=== PATIENT | female | born 1955 | race Caucasian/White ===

== ENCOUNTER 2021-07-23 09:32 | Observation (INO) | payer MEDICARE, OTHER ==
--- NOTE | 2021-07-23 10:03 | CR ---
EXAMINATION: Ankle 2V Lt SEX: Female AGE: 66 years CLINICAL HISTORY: 66-year-old female injured left ankle (fall and pain). Interpretation: Abnormal. FRACTURE/DISLOCATION left ankle. (Air splint artifact) 1. Distal fibular fracture and posterior/lateral malleolar fractures of the distal tibia. 2. Complete tibiotalar dislocation i.e. distal tibia dislocated anteromedially off the dome of the talus. 3. No calcaneal or left mid foot fracture/dislocation.
--- NOTE | 2021-07-23 10:21 | EDM.PDOC ---
ED HPI GENERAL MEDICAL PROBLEM - General Chief Complaint: Lower Extremity Injury/Pain Stated Complaint: IN BY AMBULANCE Time Seen by Provider: 07/23/21 10:15 Source of Information: Reports: Patient History Limitations: Reports: No Limitations - History of Present Illness INITIAL COMMENTS - FREE TEXT/NARRATIVE: 66 y/o F states she was sitting on her walker in her closet trying to get a box off the shelf when she fell off her walker and landed on her L ankle. Pt pushed her life alert and EMS was called. Pt c/o L ankle pain 2/10, sharp, non radiating. The pt is developmentally delayed and difficult to interview. She has not other complaints. Denies loc, nvd, dizziness, cp, abd pn, pelivc pn, other extremity pn, fever, cough, chills. Onset: Sudden Duration: Hour(s): Location: Reports: Lower Extremity, Left Severity: Mild Improves with: Reports: None Worsens with: Reports: None Left Ankle Pain Score (Numeric/FACES): 3 - Related Data Allergies Allergy/AdvReac Type Severity Reaction Status Date / Time No Known Allergies Allergy Verified 07/23/21 09:41 Home Meds: Home Meds Interferon Beta-1a/Albumin [Rebif Rebidose 44 Mcg/0.5 ml] 44 mcg IM .3XWEEKLY 07/01/14 [History] Aspirin [Halfprin] 81 mg PO DAILY #90 tab.ec 05/19/19 [Rx] Calcium Carbonate/Vitamin D3 [Calcium Carbonate/Vitamin D 1250 MG - 5 MCG] 1 tab PO BID #30 tablet 05/19/19 [Rx] Coconut Oil [Coconut Oil] 1 dose PO DAILY #30 05/19/19 [Rx] Cranberry Conc/C/Bacill Coag [Cranberry Tablet] 1 each PO DAILY #30 05/19/19 [Rx] Melatonin 6 mg PO BEDTIME #90 tablet 05/19/19 [Rx] Nitroglycerin [Nitrostat] 0.4 mg SL ASDIRECTED PRN #90 tab.sl 05/19/19 [Rx] Ondansetron [Zofran] 4 mg PO Q8H PRN #30 tab 05/19/19 [Rx] Rosuvastatin [Crestor] 40 mg PO DAILY #30 05/19/19 [Rx] Sertraline [Zoloft] 50 mg PO DAILY 30 Days #30 tablet 05/19/19 [Rx] hydroCHLOROthiazide [Hydrochlorothiazide] 25 mg PO DAILY #30 tablet 05/19/19 [Rx] Scopolamine [Transderm-Scop] 1.5 mg TRDERM Q72H PRN #7 patch 05/21/19 [Rx] Alendronate Sodium [Fosamax] 70 mg PO .EVERY THRUS 07/23/21 [History] Docusate Sodium 100 mg PO BID 07/23/21 [History] Potassium Gluconate [Potassium] 99 mg PO DAILY 07/23/21 [History] lisinopriL [Prinivil] 10 mg PO DAILY 07/23/21 [History] Past Medical History HEENT History: Reports: Hard of Hearing, Impaired Vision Other HEENT History: poor hearing in right ear Cardiovascular History: Reports: CAD, High Cholesterol, Hypertension, AR, Other (See Below), Pacemaker Other Cardiovascular History: debrillator Respiratory History: Reports: None Gastrointestinal History: Reports: None Genitourinary History: Reports: Chronic Renal Insuffiency, UTI, Recurrent Other Genitourinary History: frequency [employer] SCI[employer]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 [employer]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 Musculoskeletal History: Reports: None Other Musculoskeletal History: Patient has MS, diagnosed about 5-7 years ago Neurological History: Reports: CVA, MS Other Neuro History: lacunar infarction, bells palsy Psychiatric History: Reports: None Endocrine/Metabolic History: Reports: Obesity/BMI 30+ Hematologic History: Reports: Anemia, None Immunologic History: Reports: None Oncologic (Cancer) History: Reports: None Dermatologic History: Reports: None - Infectious Disease History Infectious Disease History: Reports: Chicken Pox, Measles, Mumps - Past Surgical History Head Surgeries/Procedures: Reports: None HEENT Surgical History: Reports: Adenoidectomy, Tonsillectomy Cardiovascular Surgical History: Reports: None Other Cardiovascular Surgeries/Procedures: cardiac stent placement, cardiac catherization, cardiac pacemaker placement with AICD Respiratory Surgical History: Reports: None GI Surgical History: Reports: Appendectomy Neurological Surgical History: Reports: None Musculoskeletal Surgical History: Reports: None Social & Family History - Family History Family Medical History: No Pertinent Family History Cardiac: Reports: Hypertension Musculoskeletal: Reports: Arthritis Endocrine/Metabolic: Reports: Other (See Below) Other Endocrine/Metabolic Family History: mother: thyroid disease Oncologic: Reports: Other (See Below) Other Oncologic Family History: father and siser had cancer - Tobacco Use Tobacco Use Status *Q: Never Tobacco User - Caffeine Use Caffeine Use: Reports: None Other Caffeine Use: 1 can - Recreational Drug Use Recreational Drug Use: No - Living Situation & Occupation Living situation: Reports: Alone, Assisted Living, with Family, Single Occupation: Disabled Review of Systems - Review of Systems Review Of Systems: Comprehensive ROS is negative, except as noted in HPI. ED EXAM, GENERAL - Physical Exam Exam: See Below Exam Limited By: No Limitations General Appearance: Alert, No Apparent Distress Throat/Mouth: Normal Inspection, Normal Lips, Normal Teeth, Normal Gums, Normal Oropharynx, Normal Voice, No Airway Compromise Head: Atraumatic, Normocephalic Neck: Normal Inspection, Supple, Non-Tender, Full Range of Motion Respiratory/Chest: No Respiratory Distress, Lungs Clear, Normal Breath Sounds, No Accessory Muscle Use, Chest Non-Tender Cardiovascular: Normal Peripheral Pulses, No Edema, No Gallop, No JVD, No Murmur, No Rub Peripheral Pulses: 2+: Posterior Tibial (L), Posterior Tibial (R), Dorsalis Pedis (L), Dorsalis Pedis (R) GI/Abdominal: Soft, Non-Tender (Female) Exam: Deferred Rectal (Female) Exam: Deferred Back Exam: Normal Inspection, Full Range of Motion Extremities: Other (L ankle deformity, foot deviated laterally.) Skin Exam: Warm, Dry, Intact ED TRAUMA EXTREMITY PROCEDURES - Joint Reduction Left Ankle Sedation: Conscious Sedation Pre-Procedure NV Status: Normal Post-Procedure NV Status: Normal Technique: Traction/Counter Traction Number of Attempts: 1 Post-Reduction Imaging: Completely Reduced Joint Reduction Complications: No Progress/Comments: Pt tolerated well, splinted with orthoglass, no complications, Course - Vital Signs Last Recorded V/S: Last Vital Signs Temp 97.3 F 07/23/21 09:46 Pulse 70 07/23/21 09:46 Resp 18 07/23/21 09:46 BP 108/79 07/23/21 09:46 Pulse Ox 93 L 07/23/21 09:46 - Orders/Labs/Meds Orders: Active Orders 24 hr Category Date Time Status Admission Diagnosis [ADT] Urgent ADT 07/23/21 13:42 Ordered Admission Status [Patient Status] [ADT] Routine ADT 07/23/21 13:42 Ordered Sodium Chloride 0.9% [Normal Saline] 1,000 ml Med 07/23/21 10:43 Active IV CONTINUOUS Medication Orders Sodium Chloride (Normal Saline) 1,000 mls @ 125 mls/hr IV CONTINUOUS ONE Stop: 07/23/21 18:42 Last Admin: 07/23/21 11:33 Dose: 125 mls/hr Documented by: JANE Labs: Laboratory Tests 07/23/21 Range/Units 12:06 SARS-CoV-2 RNA (EMI) Negative (NEGATIVE) Meds: Medications Generic Name Dose Route Start Last Admin Trade Name Ericka PRN Reason Stop Dose Admin Sodium Chloride 1,000 mls @ 125 mls/hr 07/23/21 10:43 07/23/21 11:33 Normal Saline IV 07/23/21 18:42 125 mls/hr CONTINUOUS ONE Administration - Re-Assessments/Exams Free Text/Narrative Re-Assessment/Exam: 07/23/21 11:40 Spoke with Kim at [facility] one call and she will contact an orthopedic surgeon to consult with me on this fracture dislocation. 07/23/21 13:49 Discussed the pt with Dr. Fry he will admit the pt until she can be placed in a group home. She is scheduled to be evaluated in [place] on Mon by [facility] orthopedics. Departure - Departure Time of Disposition: 13:36 (Dr. Fry) Disposition: Admitted As Inpatient 64 Condition: Fair Clinical Impression: Ankle fracture, left - Discharge Information *PRESCRIPTION DRUG MONITORING PROGRAM REVIEWED*: Not Applicable *COPY OF PRESCRIPTION DRUG MONITORING REPORT IN PATIENT HORACIO: Not Applicable Forms: ED Department Discharge Sepsis Event Note (ED) - Focused Exam Vital Signs: Vital Signs Temp Pulse Resp BP Pulse Ox 07/23/21 09:46 97.3 F 70 18 108/79 93 L - My Orders Last 24 Hours: My Active Orders 07/23/21 10:43 Sodium Chloride 0.9% [Normal Saline] 1,000 ml IV CONTINUOUS 07/23/21 13:42 Admission Diagnosis [ADT] Urgent Admission Status [Patient Status] [ADT] Routine - Assessment/Plan Last 24 Hours: My Active Orders 07/23/21 10:43 Sodium Chloride 0.9% [Normal Saline] 1,000 ml IV CONTINUOUS 07/23/21 13:42 Admission Diagnosis [ADT] Urgent Admission Status [Patient Status] [ADT] Routine
[2021-07-23] MEDS ORDERED: Sodium Chloride 0.9% 1,000 ML IV ONE (10:43)
--- NOTE | 2021-07-23 11:32 | CR ---
EXAMINATION: Ankle 2V Lt SEX: Female AGE: 66 years CLINICAL HISTORY: 66-year-old female "fracture/dislocation left ankle" (post reduction). INTERPRETATION: Satisfactory reduction spiral distal fibular and possibly posterior malleolar fracture distal tibia i.e. now satisfactory apposition and anatomic alignment. Satisfactory symmetric re-orientation of the tibiotalar joint. No new postreduction fracture appreciated through the splint/cast density.
[2021-07-23] MEDS ORDERED: Propofol 1,000 MG/100 ML SDV IV ONE (13:14)
--- NOTE | 2021-07-23 13:48 | PCM.HP ---
H&P History of Present Illness - General Date of Service: 07/23/21 Admit Problem/Dx: Traumatic fall Source of Information: Patient, Provider, RN Notes Reviewed History Limitations: Reports: Physical Impairment - History of Present Illness Initial Comments - Free Text/Narative: This is a 66-year-old elderly white female with past medical history of impaired vision and hearing, hypertension, hyperlipidemia, history of FL, coronary disease, status post defibrillator placement, history of renal insufficiency, recurrent UTI, urinary frequency, MS, history of CVA, history of Tristan's palsy, vitamin D deficiency, osteoporosis, insomnia, anxiety, and obesity who was brought in by EMS on a stretcher after sustaining a traumatic fall while attempting to get something out of her closet and ended up injuring her left ankle. She currently has deformity but neuro vascularly intact. She denies any preceding symptoms. No loss of consciousness. She reports no strokelike or seizure-like activities. Her initial work-up in the emergency department shows negative for COVID-19 screening test. Her initial ankle x-ray was read as distal fibular fracture and posterior/lateral malleoli fracture of the distal fibula with complete tibiotalar dislocation. In the emergency department, the attending provider was able to reduce the dislocated bones after consulting with Dr. Duran, orthopedic surgeon, in [place]. Unfortunately the patient is unable to go back to the assisted living facility and therefore she comes to us for further observation with plans to discharge on Monday to a local half-way. She has been scheduled to see Dr. Duran for possible surgical intervention next week. The patient and her family were aware of the medical decision making that was formulated while she was in the emergency department. To note, the local half-way is in agreement to take her Monday for placement. Her code status is full. Left Ankle Pain Score (Numeric/FACES): 3 - Related Data Allergies/Adverse Reactions: Allergies Allergy/AdvReac Type Severity Reaction Status Date / Time No Known Allergies Allergy Verified 07/23/21 15:11 Home Medications: Home Meds Interferon Beta-1a/Albumin [Rebif Rebidose 44 Mcg/0.5 ml] 44 mcg IM .3XWEEKLY 07/01/14 [History] Aspirin [Halfprin] 81 mg PO DAILY #90 tab.ec 05/19/19 [Rx] Calcium Carbonate/Vitamin D3 [Calcium Carbonate/Vitamin D 1250 MG - 5 MCG] 1 tab PO BID #30 tablet 05/19/19 [Rx] Coconut Oil [Coconut Oil] 1 dose PO DAILY #30 05/19/19 [Rx] Cranberry Conc/C/Bacill Coag [Cranberry Tablet] 1 each PO DAILY #30 05/19/19 [Rx] Nitroglycerin [Nitrostat] 0.4 mg SL ASDIRECTED PRN #90 tab.sl 05/19/19 [Rx] Ondansetron [Zofran] 4 mg PO Q8H PRN #30 tab 05/19/19 [Rx] Sertraline [Zoloft] 50 mg PO DAILY 30 Days #30 tablet 05/19/19 [Rx] hydroCHLOROthiazide [Hydrochlorothiazide] 25 mg PO DAILY #30 tablet 05/19/19 [Rx] Scopolamine [Transderm-Scop] 1.5 mg TRDERM Q72H PRN #7 patch 05/21/19 [Rx] Acetaminophen [Pain Relief] 500 mg PO Q4H PRN 07/23/21 [History] Alendronate Sodium [Fosamax] 70 mg PO .Monday07/23/21 [History] Bisacodyl [Gentle Laxative] 10 mg RC DAILY PRN 07/23/21 [History] Docusate Sodium 100 mg PO BID 07/23/21 [History] Ibuprofen 200 mg PO Q6H PRN 07/23/21 [History] Melatonin 5 mg PO BEDTIME 07/23/21 [History] Potassium Gluconate [Potassium] 99 mg PO DAILY 07/23/21 [History] Rosuvastatin Calcium 40 mg PO DAILY 07/23/21 [History] lisinopriL [Lisinopril] 10 mg PO DAILY 07/23/21 [History] polyethylene glycoL 3350 [MiraLAX] 17 gm PO DAILY PRN 07/23/21 [History] Past Medical History HEENT History: Reports: Hard of Hearing, Impaired Vision Other HEENT History: poor hearing in right ear Cardiovascular History: Reports: CAD, High Cholesterol, Hypertension, FL, Other (See Below), Pacemaker Other Cardiovascular History: debrillator Respiratory History: Reports: None Gastrointestinal History: Reports: None Genitourinary History: Reports: Chronic Renal Insuffiency, UTI, Recurrent Other Genitourinary History: frequency [employer] 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 Musculoskeletal History: Reports: None Other Musculoskeletal History: Patient has MS, diagnosed about 5-7 years ago Neurological History: Reports: CVA, MS Other Neuro History: lacunar infarction, bells palsy Psychiatric History: Reports: None Endocrine/Metabolic History: Reports: Obesity/BMI 30+ Hematologic History: Reports: Anemia, None Immunologic History: Reports: None Oncologic (Cancer) History: Reports: None Dermatologic History: Reports: None - Infectious Disease History Infectious Disease History: Reports: Chicken Pox, Measles, Mumps - Past Surgical History Head Surgeries/Procedures: Reports: None HEENT Surgical History: Reports: Adenoidectomy, Tonsillectomy Cardiovascular Surgical History: Reports: None Other Cardiovascular Surgeries/Procedures: cardiac stent placement, cardiac catherization, cardiac pacemaker placement with AICD Respiratory Surgical History: Reports: None GI Surgical History: Reports: Appendectomy Neurological Surgical History: Reports: None Musculoskeletal Surgical History: Reports: None Social & Family History - Family History Family Medical History: No Pertinent Family History Cardiac: Reports: Hypertension Musculoskeletal: Reports: Arthritis Endocrine/Metabolic: Reports: Other (See Below) Other Endocrine/Metabolic Family History: mother: thyroid disease Oncologic: Reports: Other (See Below) Other Oncologic Family History: father and siser had cancer - Tobacco Use Tobacco Use Status *Q: Never Tobacco User - Caffeine Use Caffeine Use: Reports: None Other Caffeine Use: 1 can - Recreational Drug Use Recreational Drug Use: No - Living Situation & Occupation Living situation: Reports: Alone, Assisted Living, with Family, Single Occupation: Disabled H&P Review of Systems - Review of Systems: Review Of Systems: See Below General: Reports: Weakness. Denies: Fever, Malaise, Fatigue HEENT: Denies: Contact Lenses Pulmonary: Denies: Shortness of Breath, Wheezing, Pleuritic Chest Pain Cardiovascular: Denies: Chest Pain, Lightheadedness Gastrointestinal: Denies: Anorexia, Constipation, Diarrhea, Distension Genitourinary: Reports: Frequency Musculoskeletal: Reports: Neck Pain, Leg Pain. Denies: Back Pain Skin: Denies: Jaundice, Erythema, Wound Psychiatric: Denies: Anxiety, Agitation Neurological: Reports: Difficulty Walking, Weakness, Gait Disturbance. Denies: Dizziness, Numbness, Tingling Hematologic/Lymphatic: Reports: No Symptoms Immunologic: Reports: No Symptoms Exam - Exam Exam: See Below - Vital Signs Vital Signs: Last Vital Signs Temp 36.3 C 07/23/21 09:46 Pulse 70 07/23/21 09:46 Resp 18 07/23/21 09:46 BP 108/79 07/23/21 09:46 Pulse Ox 93 L 07/23/21 09:46 Weight: 95.617 kg - Exam Quality Assessment: No: Supplemental Oxygen General: Alert, Oriented, Cooperative HEENT: Conjunctiva Clear, EACs Clear, EOMI, Hearing Intact, Mucosa Moist & Tiro, Nares Patent, Normal Nasal Septum, Posterior Pharynx Clear, Pupils Equal, Pupils Reactive Neck: Supple, Trachea Midline Lungs: Clear to Auscultation, Normal Respiratory Effort Cardiovascular: Regular Rate, Regular Rhythm, Other (Presence of cardiac device and upper anterior thorax) GI/Abdominal Exam: Normal Bowel Sounds, Soft, Non-Tender, No Organomegaly, Other (Obese) (Female) Exam: Deferred Rectal (Female) Exam: Deferred Back Exam: Normal Inspection, Decreased Range of Motion Extremities: Normal Inspection, Non-Tender, Normal Capillary Refill, Limited Range of Motion (Left lower extremity), Other (Left lower extremity: Splinted with Ortho-Glass) Peripheral Pulses: 2+: Dorsalis Pedis (L), Dorsalis Pedis (R) Skin: Warm, Dry, Intact Neuro Extensive - Mental Status: Oriented x3, Memory Intact Neuro Extensive - Motor, Sensory, Reflexes: CN II-XII Intact (Limited due to pain and discomfort but otherwise grossly intact; she is nonweightbearing of the affected limb). No: Normal Gait DTR: 2+: Achilles (L), Achilles (R) Psychiatric: Alert, Normal Affect, Normal Mood - Patient Data Lab Results Last 24 hrs: Laboratory Results - last 24 hr 07/23/21 Range/Units 12:06 SARS-CoV-2 RNA (EMI) Negative (NEGATIVE) Result Diagrams: 07/24/21 05:10 07/24/21 05:10 Problem List Initiated/Reviewed/Updated: Yes Orders Last 24hrs: Active Orders 24 hr Category Date Time Status Sodium Chloride 0.9% [Normal Saline] 1,000 ml Med 07/23/21 10:43 Active IV CONTINUOUS Medication Orders Sodium Chloride (Normal Saline) 1,000 mls @ 125 mls/hr IV CONTINUOUS ONE Stop: 07/23/21 18:42 Last Admin: 07/23/21 11:33 Dose: 125 mls/hr Documented by: JANE Assessment/Plan Comment:: This is a 66-year-old elderly white female with past medical history of impaired vision and hearing, hypertension, hyperlipidemia, history of FL, coronary disease, status post defibrillator placement, history of renal insufficiency, recurrent UTI, urinary frequency, MS, history of CVA, history of Tristan's palsy, vitamin D deficiency, osteoporosis, insomnia, anxiety, and obesity who was brought in by EMS on a stretcher after sustaining a traumatic fall while attempting to get something out of her closet and ended up injuring her left ankle. Assessment: Acute: Traumatic fall/ground-level fall without preceding symptoms Distal fibular fracture and posterior/lateral malleolar fracture of the distal fibula Complete tibiotalar dislocation Status post manual reduction with Ortho teleconsult Osteoporosis Vitamin D deficiency Class II obese Chronic: Impaired vision and hearing, hypertension, hyperlipidemia, history of FL, coronary disease, history of sick sinus syndrome status post pacemaker placement, history of renal insufficiency, recurrent UTI, urinary frequency, MS, history of CVA, history of Tristan's palsy, vitamin D deficiency, osteoporosis, insomnia, anxiety, and obesity Plan: Admit to medical surgical floor Routine a.m. 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 Duran next week (Monday) for orthopedic evaluation CODE STATUS is full
[2021-07-23] MEDS ORDERED: Promethazine 25 MG/ML SDV IM PRN (14:57)
[2021-07-23] MEDS ORDERED: Polyethylene Glycol 3350 Powder 17 GM Packet PO PRN ×2 (14:57→15:49)
[2021-07-23] MEDS ORDERED: HYDROmorphone 0.5 MG/0.5 ML Syringe IVPUSH PRN (14:57)
[2021-07-23] MEDS ORDERED: Acetaminophen 325 MG Tab PO PRN (14:57)
[2021-07-23] MEDS ORDERED: Bisacodyl 5 MG Tab PO PRN (14:57)
[2021-07-23] MEDS ORDERED: Albuterol/Ipratropium 3.0-0.5 MG/3 ML Neb Soln NEB PRN (14:57)
[2021-07-23] MEDS ORDERED: Ondansetron 4 MG/2 ML SDV IVPUSH PRN (14:57)
[2021-07-23] MEDS ORDERED: Nitroglycerin 0.4 MG Tab.SL SL PRN (15:14)
[2021-07-23] MEDS ORDERED: Non-Formulary Medication 1 Each (Alendronate Sodium [Fosamax] 70 MG Tablet) PO SCH (15:15)
[2021-07-23] MEDS ORDERED: Bisacodyl 10 MG Supp RECTAL PRN (15:49)
[2021-07-23] MEDS ORDERED: Acetaminophen 500 MG Tab PO PRN (15:49)
[2021-07-23] MEDS ORDERED: Scopolamine 1.5 MG Transdermal Patch TRDERM PRN (15:49)
[2021-07-23] MEDS ORDERED: Ondansetron 4 MG Tab.DIS PO PRN (15:49)
[2021-07-23] MEDS ORDERED: ALBUMIN IM SCH (16:00)
[2021-07-23] MEDS ORDERED: [UNRECOGNIZED DRUG - OTHER] IM SCH (16:00)
[2021-07-23] MEDS ORDERED: INTERFERON BETA IM SCH (16:00)
[2021-07-23] MEDS: Acetaminophen/HYDROcodone 325-10 MG Tab PO PRN (20:41)
[2021-07-23] MEDS: Heparin Sodium 5,000 Units/ML Vial SUBCUT SCH (23:35)
[2021-07-24] MEDS: Heparin Sodium 5,000 Units/ML Vial SUBCUT SCH ×4 (05:12→22:44)
[2021-07-24] MEDS: Acetaminophen/HYDROcodone 325-10 MG Tab PO PRN ×4 (05:12→20:22)
[2021-07-24 05:23] LABS: ANION GAP 14.4 mEq/L (7-13)
--- NOTE | 2021-07-24 08:49 | PCM.PN ---
- General Info Date of Service: 07/24/21 Admission Dx/Problem (Free Text): Traumatic fall Subjective Update: No overnight or acute issues. Her pain is controlled with a pain scale of 3/10. She has no new complaints. She is afebrile with stable blood pressures. Her CBC is unremarkable. Her chemistry today shows potassium of 3.4 with elevated creatinine level of 1.9, much improved from yesterday of 1.35. Her glucose is also elevated at 145. Functional Status: Reports: Pain Controlled, Tolerating Diet, Urinating. Denies: Ambulating, New Symptoms - Review of Systems General: Denies: Fever, Weakness, Malaise, Chills Pulmonary: Reports: Cough. Denies: Shortness of Breath Cardiovascular: Denies: Chest Pain Gastrointestinal: Denies: Abdominal Pain, Nausea, Vomiting Genitourinary: Denies: Frequency, Urgency Musculoskeletal: Reports: Leg Pain. Denies: Neck Pain, Back Pain Skin: Reports: Pruritis. Denies: Bruising Neurological: Reports: Difficulty Walking, Gait Disturbance. Denies: Confusion Psychiatric: Denies: Depression, Anxiety, Agitation - Patient Data Vitals - Most Recent: Last Vital Signs Temp 36.7 C 07/24/21 08:00 Pulse 77 07/24/21 08:00 Resp 20 07/24/21 08:00 BP 103/74 07/24/21 08:00 Pulse Ox 95 07/24/21 08:00 Weight - Most Recent: 94.347 kg I&O - Last 24 Hours: Intake & Output 07/23/21 07/24/21 07/24/21 22:59 06:59 14:59 Intake Total 150 Balance 150 Lab Results Last 24 Hours: Laboratory Results - last 24 hr 07/23/21 07/23/21 07/23/21 Range/Units 12:06 16:20 16:20 WBC (5.0-10.0) 10^3/uL RBC (4.2-5.4) 10^6/uL Hgb (12.0-16.0) g/dL Hct (37.0-47.0) % MCV (80-100) fL MCH (27.0-34.0) pg MCHC (33.0-35.0) g/dL Plt Count (150-450) 10^3/uL Neut % (Auto) (42.2-75.2) % Lymph % (Auto) (20.5-50.1) % [place] % (Auto) (2-8) % Eos % (Auto) (1.0-3.0) % Baso % (Auto) (0.0-1.0) % APTT 25.1 (22.0-34.0) SEC Sodium (136-145) mmol/L Potassium (3.5-5.1) mmol/L Chloride (98-107) mmol/L Carbon Dioxide (21-32) mmol/L Anion Gap (7-13) mEq/L BUN (7-18) mg/dL Creatinine 1.35 H (0.55-1.02) mg/dL Est Cr Clr Drug Dosing 32.99 mL/min Estimated GFR (MDRD) 39 Glucose (70-99) mg/dL Calcium (8.5-10.1) mg/dL Magnesium (1.8-2.4) mg/dL SARS-CoV-2 RNA (EMI) Negative (NEGATIVE) 07/23/21 07/24/21 07/24/21 Range/Units 16:20 05:10 05:10 WBC 7.9 (5.0-10.0) 10^3/uL RBC 4.09 L (4.2-5.4) 10^6/uL Hgb 12.6 D (12.0-16.0) g/dL Hct 38.7 (37.0-47.0) % MCV 94.6 (80-100) fL MCH 30.8 (27.0-34.0) pg MCHC 32.6 L (33.0-35.0) g/dL Plt Count 193 158 (150-450) 10^3/uL Neut % (Auto) 77.3 H (42.2-75.2) % Lymph % (Auto) 11.4 L (20.5-50.1) % [place] % (Auto) 9.8 H (2-8) % Eos % (Auto) 1.4 (1.0-3.0) % Baso % (Auto) 0.1 (0.0-1.0) % APTT (22.0-34.0) SEC Sodium 139 (136-145) mmol/L Potassium 3.4 L (3.5-5.1) mmol/L Chloride 102 (98-107) mmol/L Carbon Dioxide 26 (21-32) mmol/L Anion Gap 14.4 H (7-13) mEq/L BUN 35 H (7-18) mg/dL Creatinine 1.19 H (0.55-1.02) mg/dL Est Cr Clr Drug Dosing 37.43 mL/min Estimated GFR (MDRD) 45 Glucose 145 H (70-99) mg/dL Calcium 9.7 (8.5-10.1) mg/dL Magnesium 2.1 (1.8-2.4) mg/dL SARS-CoV-2 RNA (EMI) (NEGATIVE) Med Orders - Current: Current Medications Acetaminophen (Acetaminophen 325 Mg Tab) 650 mg PO Q4H PRN PRN Reason: Pain (Mild 1-3)/fever Acetaminophen (Acetaminophen 500 Mg Tab) 500 mg PO Q4H PRN PRN Reason: Pain (mild 1-3) Hydrocodone Bitart/Acetaminophen (Acetaminophen/Hydrocodone 325-10 Mg Tab) 1 tab PO Q4H PRN PRN Reason: Pain (moderate 4-6) Last Admin: 07/24/21 05:12 Dose: 1 tab Documented by: Albuterol/Ipratropium (Albuterol/Ipratropium 3.0-0.5 Mg/3 Ml Neb Soln) 3 ml NEB Q4H PRN PRN Reason: shortness of breath/wheezing Aspirin (Aspirin 81 Mg Tab.Ec) 81 mg PO DAILY [facility] Bisacodyl (Bisacodyl 10 Mg Supp) 10 mg RECTAL DAILY PRN PRN Reason: Constipation Calcium Carbonate (Calcium Carbonate/Vitamin D3 1250 Mg-5 Mcg Tab) 1 tab PO BID [facility] Docusate Sodium (Docusate Sodium 100 Mg Cap) 100 mg PO BID [facility] Heparin Sodium (Porcine) (Heparin Sodium 5,000 Units/Ml Vial) 5,000 units SUBCUT Q8HR [facility] Last Admin: 07/24/21 05:12 Dose: 5,000 units Documented by: Hydrochlorothiazide (Hydrochlorothiazide 25 Mg Tab) 25 mg PO DAILY [facility] Hydromorphone HCl (Hydromorphone 0.5 Mg/0.5 Ml Syringe) 0.5 mg IVPUSH Q2H PRN PRN Reason: Pain (severe 7-10) Lisinopril (Lisinopril 10 Mg Tab) 10 mg PO DAILY [facility] Nitroglycerin (Nitroglycerin 0.4 Mg Tab.Sl) 0.4 mg SL ASDIRECTED PRN PRN Reason: Chest Pain Non-Formulary Medication (Alendronate Sodium [Fosamax]) 70 mg PO .EVERY THRUS [facility] Non-Formulary Medication (Coconut Oil [Coconut Oil]) 1 dose PO DAILY [facility] Non-Formulary Medication (Cranberry Conc/C/Bacill Coag [Cranberry Tablet]) 1 each PO DAILY [facility] Melatonin 5 Mg 5 each PO BEDTIME [facility] Non-Formulary Medication (Potassium Gluconate [Potassium]) 99 mg PO DAILY [facility] Non-Formulary Medication (Interferon Beta-1a/Albumin [Rebif Rebidose 44 Mcg/0.5 Ml]) 44 mcg IM .3XWEEKLY [facility] Ondansetron HCl (Ondansetron 4 Mg/2 Ml Sdv) 4 mg IVPUSH Q6H PRN PRN Reason: Nausea/Vomiting Ondansetron HCl (Ondansetron 4 Mg Tab.Dis) 4 mg PO Q8H PRN PRN Reason: Nausea/Vomiting Polyethylene Glycol (Polyethylene Glycol 3350 Powder 17 Gm Packet) 17 gm PO DAILY PRN PRN Reason: Constipation, use first Promethazine HCl (Promethazine 25 Mg/Ml Sdv) 12.5 mg IM Q6H PRN PRN Reason: Nausea/Vomiting, use 2nd Rosuvastatin Calcium (Rosuvastatin 10 Mg Tab) 40 mg PO DAILY [facility] Scopolamine (Scopolamine 1.5 Mg Transdermal Patch) 1.5 mg TRDERM Q72H PRN PRN Reason: Nausea Sertraline HCl (Sertraline 50 Mg Tab) 50 mg PO DAILY [facility] Discontinued Medications Sodium Chloride (Normal Saline) 1,000 mls @ 125 mls/hr IV CONTINUOUS ONE Stop: 07/23/21 18:42 Last Admin: 07/23/21 11:33 Dose: 125 mls/hr Documented by: - Exam Quality Assessment: DVT Prophylaxis, Skin Breakdown. No: Supplemental Oxygen, Urine Catheter General: Alert, Oriented, Cooperative, No Acute Distress, Other (Obese) HEENT: Pupils Equal, Pupils Reactive, EOMI, Mucous Membr. Moist/[place] Neck: Supple Lungs: Clear to Auscultation, Normal Respiratory Effort Cardiovascular: Regular Rate, Regular Rhythm GI/Abdominal Exam: Normal Bowel Sounds, Soft, Non-Tender, No Organomegaly, No Distention, No Abnormal Bruit, No Mass (Female) Exam: Deferred Back Exam: Normal Inspection, Full Range of Motion Extremities: Normal Inspection, Normal Range of Motion, Non-Tender, No Pedal Edema, Normal Capillary Refill, Other (Left leg splinted with Ortho-Glass) Peripheral Pulses: 2+: Posterior Tibial (R), Dorsalis Pedis (R) Skin: Warm, Dry, Intact Neurological: No New Focal Deficit. No: Normal Gait Psy/Mental Status: Alert, Normal Affect, Normal Mood - Patient Data Lab Results Last 24 hrs: Laboratory Results - last 24 hr 07/23/21 07/23/21 07/23/21 Range/Units 12:06 16:20 16:20 WBC (5.0-10.0) 10^3/uL RBC (4.2-5.4) 10^6/uL Hgb (12.0-16.0) g/dL Hct (37.0-47.0) % MCV (80-100) fL MCH (27.0-34.0) pg MCHC (33.0-35.0) g/dL Plt Count (150-450) 10^3/uL Neut % (Auto) (42.2-75.2) % Lymph % (Auto) (20.5-50.1) % [place] % (Auto) (2-8) % Eos % (Auto) (1.0-3.0) % Baso % (Auto) (0.0-1.0) % APTT 25.1 (22.0-34.0) SEC Sodium (136-145) mmol/L Potassium (3.5-5.1) mmol/L Chloride (98-107) mmol/L Carbon Dioxide (21-32) mmol/L Anion Gap (7-13) mEq/L BUN (7-18) mg/dL Creatinine 1.35 H (0.55-1.02) mg/dL Est Cr Clr Drug Dosing 32.99 mL/min Estimated GFR (MDRD) 39 Glucose (70-99) mg/dL Calcium (8.5-10.1) mg/dL Magnesium (1.8-2.4) mg/dL SARS-CoV-2 RNA (EMI) Negative (NEGATIVE) 07/23/21 07/24/21 07/24/21 Range/Units 16:20 05:10 05:10 WBC 7.9 (5.0-10.0) 10^3/uL RBC 4.09 L (4.2-5.4) 10^6/uL Hgb 12.6 D (12.0-16.0) g/dL Hct 38.7 (37.0-47.0) % MCV 94.6 (80-100) fL MCH 30.8 (27.0-34.0) pg MCHC 32.6 L (33.0-35.0) g/dL Plt Count 193 158 (150-450) 10^3/uL Neut % (Auto) 77.3 H (42.2-75.2) % Lymph % (Auto) 11.4 L (20.5-50.1) % [place] % (Auto) 9.8 H (2-8) % Eos % (Auto) 1.4 (1.0-3.0) % Baso % (Auto) 0.1 (0.0-1.0) % APTT (22.0-34.0) SEC Sodium 139 (136-145) mmol/L Potassium 3.4 L (3.5-5.1) mmol/L Chloride 102 (98-107) mmol/L Carbon Dioxide 26 (21-32) mmol/L Anion Gap 14.4 H (7-13) mEq/L BUN 35 H (7-18) mg/dL Creatinine 1.19 H (0.55-1.02) mg/dL Est Cr Clr Drug Dosing 37.43 mL/min Estimated GFR (MDRD) 45 Glucose 145 H (70-99) mg/dL Calcium 9.7 (8.5-10.1) mg/dL Magnesium 2.1 (1.8-2.4) mg/dL SARS-CoV-2 RNA (EMI) (NEGATIVE) Result Diagrams: 07/24/21 05:10 07/24/21 05:10 Sepsis Event Note - Evaluation Sepsis Screening Result: No Definite Risk - Focused Exam Vital Signs: Vital Signs Temp Pulse Resp BP Pulse Ox 07/24/21 08:00 36.7 C 77 20 103/74 95 07/24/21 05:00 35.3 C L 77 18 99/72 95 07/23/21 23:50 36.4 C 99 18 94/74 94 L - Problem List Review Problem List Initiated/Reviewed/Updated: Yes - My Orders Last 24 Hours: My Active Orders 07/23/21 14:57 Oxygen Therapy [RC] PRN Up With Assistance [RC] ASDIRECTED VTE/DVT Education [RC] Vital Signs [RC] 00,04,08,12,16,20 Consult to Case Management/Electrical Engineering Draftsperson [CONS] Routine OT Evaluation and Treatment [CONS] Routine PT Evaluation and Treatment [CONS] Routine Acetaminophen [TylenoL] 650 mg PO Q4H PRN Acetaminophen/HYDROcodone [[place] 325-10 MG] 1 tab PO Q4H PRN Albuterol/Ipratropium [DuoNeb 3.0-0.5 MG/3 ML] 3 ml NEB Q4H PRN HYDROmorphone [Dilaudid] 0.5 mg IVPUSH Q2H PRN Ondansetron [Zofran] 4 mg IVPUSH Q6H PRN Promethazine [Phenergan] 12.5 mg IM Q6H PRN polyethylene glycoL 3350 [MiraLAX] 17 gm PO DAILY PRN Resuscitation Status Routine 07/23/21 14:58 Antiembolic Devices [RC] DAILY Intake and Output [RC] Sequential Compression Device [OM.PC] Per Unit Routine 07/23/21 14:59 RT Aerosol Therapy [RC] .PRN 07/23/21 15:14 Nitroglycerin [Nitrostat] 0.4 mg SL ASDIRECTED PRN 07/23/21 15:15 Alendronate Sodium [Fosamax] 70 mg PO .EVERY THRUS 07/23/21 15:49 Acetaminophen [Tylenol Extra Strength] 500 mg PO Q4H PRN Ondansetron [Zofran ODT] 4 mg PO Q8H PRN Scopolamine [Transderm-Scop] 1.5 mg TRDERM Q72H PRN bisacodyL [Dulcolax] 10 mg RECTAL DAILY PRN 07/23/21 16:00 Interferon Beta-1a/Albumin [Rebif Rebidose 44 Mcg/0.5 ml] 44 mcg IM .3XWEEKLY 07/23/21 16:20 VITAMIN D 25-HYROXY (D2, D3) [REF] Routine 07/23/21 Dinner Heart Healthy Diet [DIET] 07/23/21 21:00 Non-Formulary Medication [NF Drug] 5 each PO BEDTIME 07/23/21 22:00 Heparin Sodium 5,000 units SUBCUT Q8HR 07/24/21 09:00 Aspirin [Halfprin] 81 mg PO DAILY Calcium Carbonate/Vitamin D3 [Calcium Carbonate/Vitamin D 1250 MG - 5 MCG] 1 tab PO BID Coconut Oil [Coconut Oil] 1 dose PO DAILY Cranberry Conc/C/Bacill Coag [Cranberry Tablet] 1 each PO DAILY Docusate Sodium [Colace] 100 mg PO BID Potassium Gluconate [Potassium] 99 mg PO DAILY Rosuvastatin Calcium [Rosuvastatin Calcium] 40 mg PO DAILY Rosuvastatin [Crestor] 40 mg PO DAILY Sertraline [Zoloft] 50 mg PO DAILY Sodium Chloride 0.9% @ 50 MLS/HR(250ml) Sodium Chloride 0.9% [Normal Saline] 250 ml IV ASDIRECTED hydroCHLOROthiazide 25 mg PO DAILY lisinopriL [Prinivil] 10 mg PO DAILY 07/24/21 21:00 Melatonin [Melatonin] 5 mg PO BEDTIME 07/25/21 05:11 BASIC METABOLIC PANEL,BMP [CHEM] AM CBC WITH AUTO DIFF [HEME] AM MAGNESIUM [CHEM] AM 07/26/21 05:11 BASIC METABOLIC PANEL,BMP [CHEM] AM CBC WITH AUTO DIFF [HEME] AM MAGNESIUM [CHEM] AM 07/27/21 05:11 BASIC METABOLIC PANEL,BMP [CHEM] AM CBC WITH AUTO DIFF [HEME] AM MAGNESIUM [CHEM] AM 07/28/21 05:11 BASIC METABOLIC PANEL,BMP [CHEM] AM CBC WITH AUTO DIFF [HEME] AM MAGNESIUM [CHEM] AM - Assessment Assessment:: This is a 66-year-old elderly white female with past medical history of impaired vision and hearing, hypertension, hyperlipidemia, history of SD, coronary disease, e status post defibrillator placement, history of renal insufficiency, recurrent UTI, urinary frequency, MS, history of CVA, history of Tristan's palsy, vitamin D deficiency, osteoporosis, insomnia, anxiety, and obesity who was brought in by EMS on a stretcher after sustaining a traumatic fall while attempting to get something out of her closet and ended up injuring her left ankle. Assessment: Acute: Traumatic fall/ground-level fall without preceding symptoms Distal fibular fracture and posterior/lateral malleolar fracture of the distal fibula Complete tibiotalar dislocation Status post manual reduction with Ortho teleconsult Osteoporosis Vitamin D deficiency Acute kidney injury with creatinine 1.35 (now 1.19) with BUN of 35, carries a history of renal insufficiency (likely stage II or III) Mild hypokalemia with a potassium of 3.4 Hyperglycemia with glucose level of 145 Class II obese Chronic: Impaired vision and hearing, hypertension, hyperlipidemia, history of SD, coronary disease, status post defibrillator placement, history of renal insufficiency, recurrent UTI, urinary frequency, MS, history of CVA, history of Trsitan's palsy, vitamin D deficiency, osteoporosis, insomnia, anxiety, and obesity - Plan Plan:: Plan: Continue with current treatment Routine a.m. labs Fall precautions As needed pain medications Resume home meds once verified Electrolyte replacement protocol Heart healthy diet IV fluids for hydration due to acute kidney injury We will hold lisinopril, hydrochlorothiazide, and ibuprofen for now DVT/GI prophylaxis nursing support worker/case management for discharge planning Has a scheduled appointment to see Dr. Duran next week (Monday) for orthopedic evaluation CODE STATUS is full
[2021-07-24] MEDS ORDERED: Lisinopril 10 MG Tab PO SCH (09:00)
[2021-07-24] MEDS ORDERED: Non-Formulary Medication 1 Each (Potassium Gluconate [Potassium] 99 MG Tablet) PO SCH (09:00)
[2021-07-24] MEDS ORDERED: Hydrochlorothiazide 25 MG Tab PO SCH (09:00)
[2021-07-24] MEDS ORDERED: [UNRECOGNIZED DRUG - OTHER] PO SCH (09:00)
[2021-07-24] MEDS ORDERED: COCONUT OIL PO SCH (09:00)
[2021-07-24] MEDS ORDERED: Non-Formulary Medication 1 Each (Rosuvastatin Calcium [Rosuvastatin Calcium] 40 MG Tablet) PO SCH (09:00)
[2021-07-24] MEDS ORDERED: Potassium Chloride 10 MEQ Tab.ER PO ONE (09:09)
[2021-07-24] MEDS: Rosuvastatin 10 MG Tab PO SCH (09:26)
[2021-07-24] MEDS: Docusate Sodium 100 MG Cap PO SCH ×2 (09:27→20:22)
[2021-07-24] MEDS: Calcium Carbonate/Vitamin D3 1250 MG-5 MCG Tab PO SCH ×2 (09:27→20:22)
[2021-07-24] MEDS: Aspirin 81 MG Tab.EC PO SCH (09:28)
[2021-07-24] MEDS: Sertraline 50 MG Tab PO SCH (09:28)
[2021-07-24] MEDS: Sodium Chloride 0.9% 1,000 ML IV SCH (09:31)
[2021-07-24] MEDS ORDERED: Sodium Chloride 0.9% 10 ML Syringe FLUSH PRN (11:04)
[2021-07-24] MEDS ORDERED: Melatonin 3 MG Tab PO PRN (19:49)
[2021-07-24] MEDS ORDERED: Non-Formulary Medication 1 Each (Melatonin [Melatonin] 5 MG Tablet) PO SCH (21:00)
[2021-07-25] MEDS: Heparin Sodium 5,000 Units/ML Vial SUBCUT SCH ×3 (05:14→21:11)
[2021-07-25] MEDS: Sodium Chloride 0.9% 1,000 ML IV SCH (05:15)
[2021-07-25] MEDS: Acetaminophen/HYDROcodone 325-10 MG Tab PO PRN ×3 (05:18→20:08)
[2021-07-25 06:20] LABS: ANION GAP 11.8 mEq/L (7-13)
--- NOTE | 2021-07-25 07:56 | PCM.PN ---
- General Info Date of Service: 07/25/21 Admission Dx/Problem (Free Text): Traumatic fall Subjective Update: No overnight or acute issues. Her pain is controlled with a pain scale of 3/10. She has no new complaints. She is afebrile with stable blood pressures. Her CBC is unremarkable. Her chemistry today shows potassium of 3.4 with elevated creatinine level of 1.9, much improved from yesterday of 1.35. Her glucose is also elevated at 145. Functional Status: Reports: Pain Controlled, Tolerating Diet, Urinating. Denies: New Symptoms - Review of Systems General: Denies: Fever, Weakness, Fatigue, Malaise HEENT: Reports: No Symptoms Pulmonary: Denies: Shortness of Breath, Cough Cardiovascular: Denies: Chest Pain, Dyspnea on Exertion, Orthopnea, Li ghtheadedness Gastrointestinal: Denies: Abdominal Pain, Decreased Appetite, Nausea, Vomiting Genitourinary: Reports: Retention. Denies: Frequency, Burning, Incontinence Musculoskeletal: Denies: Shoulder Pain, Arm Pain, Hand Pain, Back Pain, Leg Pain Skin: Denies: Cyanosis, Jaundice, Mottled, Pruritis Neurological: Reports: Difficulty Walking, Gait Disturbance. Denies: Dizziness, Syncope, Weakness Psychiatric: Denies: Depression, Anxiety, Agitation, Cravings, Hallucinations - Patient Data Vitals - Most Recent: Last Vital Signs Temp 36.4 C 07/25/21 04:00 Pulse 104 H 07/25/21 04:00 Resp 18 07/25/21 04:00 BP 140/88 07/25/21 04:00 Pulse Ox 96 07/25/21 04:00 Weight - Most Recent: 94.347 kg I&O - Last 24 Hours: Intake & Output 07/24/21 07/25/21 07/25/21 22:59 06:59 14:59 Intake Total 100 1076 Balance 100 1076 Lab Results Last 24 Hours: Laboratory Results - last 24 hr 07/25/21 07/25/21 Range/Units 05:55 05:55 WBC 5.2 (5.0-10.0) 10^3/uL RBC 3.60 L (4.2-5.4) 10^6/uL Hgb 11.0 L D (12.0-16.0) g/dL Hct 34.7 L (37.0-47.0) % MCV 96.4 (80-100) fL MCH 30.6 (27.0-34.0) pg MCHC 31.7 L (33.0-35.0) g/dL Plt Count 140 L (150-450) 10^3/uL Neut % (Auto) 63.5 (42.2-75.2) % Lymph % (Auto) 22.9 (20.5-50.1) % [place] % (Auto) 9.2 H (2-8) % Eos % (Auto) 4.0 H (1.0-3.0) % Baso % (Auto) 0.4 (0.0-1.0) % Sodium 140 (136-145) mmol/L Potassium 3.8 (3.5-5.1) mmol/L Chloride 105 (98-107) mmol/L Carbon Dioxide 27 (21-32) mmol/L Anion Gap 11.8 (7-13) mEq/L BUN 28 H (7-18) mg/dL Creatinine 1.22 H (0.55-1.02) mg/dL Est Cr Clr Drug Dosing 36.51 mL/min Estimated GFR (MDRD) 44 Glucose 114 H (70-99) mg/dL Calcium 8.7 (8.5-10.1) mg/dL Magnesium 1.8 (1.8-2.4) mg/dL Med Orders - Current: Current Medications Acetaminophen (Acetaminophen 325 Mg Tab) 650 mg PO Q4H PRN PRN Reason: Pain (Mild 1-3)/fever Acetaminophen (Acetaminophen 500 Mg Tab) 500 mg PO Q4H PRN PRN Reason: Pain (mild 1-3) Hydrocodone Bitart/Acetaminophen (Acetaminophen/Hydrocodone 325-10 Mg Tab) 1 tab PO Q4H PRN PRN Reason: Pain (moderate 4-6) Last Admin: 07/25/21 05:18 Dose: 1 tab Documented by: Albuterol/Ipratropium (Albuterol/Ipratropium 3.0-0.5 Mg/3 Ml Neb Soln) 3 ml NEB Q4H PRN PRN Reason: shortness of breath/wheezing Aspirin (Aspirin 81 Mg Tab.Ec) 81 mg PO DAILY [facility] Last Admin: 07/24/21 09:28 Dose: 81 mg Documented by: Bisacodyl (Bisacodyl 10 Mg Supp) 10 mg RECTAL DAILY PRN PRN Reason: Constipation Calcium Carbonate (Calcium Carbonate/Vitamin D3 1250 Mg-5 Mcg Tab) 1 tab PO BID [facility] Last Admin: 07/24/21 20:22 Dose: 1 tab Documented by: Docusate Sodium (Docusate Sodium 100 Mg Cap) 100 mg PO BID [facility] Last Admin: 07/24/21 20:22 Dose: 100 mg Documented by: Heparin Sodium (Porcine) (Heparin Sodium 5,000 Units/Ml Vial) 5,000 units SUBCUT Q8HR [facility] Last Admin: 07/25/21 05:14 Dose: 5,000 units Documented by: Hydrochlorothiazide (Hydrochlorothiazide 25 Mg Tab) 25 mg PO DAILY [facility] Hydromorphone HCl (Hydromorphone 0.5 Mg/0.5 Ml Syringe) 0.5 mg IVPUSH Q2H PRN PRN Reason: Pain (severe 7-10) Sodium Chloride (Normal Saline) 1,000 mls @ 50 mls/hr IV ASDIRECTED [facility] Last Admin: 07/25/21 05:15 Dose: 50 mls/hr Documented by: Lisinopril (Lisinopril 10 Mg Tab) 10 mg PO DAILY [facility] Melatonin (Melatonin 3 Mg Tab) 6 mg PO BEDTIME PRN PRN Reason: Sleep Last Admin: 07/24/21 20:23 Dose: 6 mg Documented by: Nitroglycerin (Nitroglycerin 0.4 Mg Tab.Sl) 0.4 mg SL ASDIRECTED PRN PRN Reason: Chest Pain Non-Formulary Medication (Alendronate Sodium [Fosamax]) 70 mg PO .EVERY THRUS [facility] Non-Formulary Medication (Coconut Oil [Coconut Oil]) 1 dose PO DAILY [facility] Non-Formulary Medication (Cranberry Conc/C/Bacill Coag [Cranberry Tablet]) 1 each PO DAILY [facility] Melatonin 5 Mg 5 each PO BEDTIME [facility] Non-Formulary Medication (Potassium Gluconate [Potassium]) 99 mg PO DAILY [facility] Non-Formulary Medication (Interferon Beta-1a/Albumin [Rebif Rebidose 44 Mcg/0.5 Ml]) 44 mcg IM .3XWEEKLY [facility] Ondansetron HCl (Ondansetron 4 Mg/2 Ml Sdv) 4 mg IVPUSH Q6H PRN PRN Reason: Nausea/Vomiting Ondansetron HCl (Ondansetron 4 Mg Tab.Dis) 4 mg PO Q8H PRN PRN Reason: Nausea/Vomiting Polyethylene Glycol (Polyethylene Glycol 3350 Powder 17 Gm Packet) 17 gm PO DAILY PRN PRN Reason: Constipation, use first Promethazine HCl (Promethazine 25 Mg/Ml Sdv) 12.5 mg IM Q6H PRN PRN Reason: Nausea/Vomiting, use 2nd Rosuvastatin Calcium (Rosuvastatin 10 Mg Tab) 40 mg PO DAILY [facility] Last Admin: 07/24/21 09:26 Dose: 40 mg Documented by: Scopolamine (Scopolamine 1.5 Mg Transdermal Patch) 1.5 mg TRDERM Q72H PRN PRN Reason: Nausea Sertraline HCl (Sertraline 50 Mg Tab) 50 mg PO DAILY [facility] Last Admin: 07/24/21 09:28 Dose: 50 mg Documented by: Sodium Chloride (Sodium Chloride 0.9% 10 Ml Syringe) 10 ml FLUSH ASDIRECTED PRN PRN Reason: Keep Vein Open Discontinued Medications Hydrochlorothiazide (Hydrochlorothiazide 25 Mg Tab) 25 mg PO DAILY [facility] Last Admin: 07/24/21 17:20 Dose: Not Given Documented by: Sodium Chloride (Normal Saline) 1,000 mls @ 125 mls/hr IV CONTINUOUS ONE Stop: 07/23/21 18:42 Last Admin: 07/23/21 11:33 Dose: 125 mls/hr Documented by: Lisinopril (Lisinopril 10 Mg Tab) 10 mg PO DAILY [facility] Last Admin: 07/24/21 17:20 Dose: Not Given Documented by: Non-Formulary Medication (Melatonin [Melatonin]) 5 mg PO BEDTIME [facility] Non-Formulary Medication (Rosuvastatin Calcium [Rosuvastatin Calcium]) 40 mg PO DAILY [facility] Last Admin: 07/24/21 17:21 Dose: Not Given Documented by: Potassium Chloride (Potassium Chloride 10 Meq Tab.Er) 40 meq PO ONETIME ONE Stop: 07/24/21 09:10 Last Admin: 07/24/21 09:28 Dose: 40 meq Documented by: - Exam Quality Assessment: DVT Prophylaxis, Skin Breakdown. No: Supplemental Oxygen, Urine Catheter General: Alert, Oriented, Cooperative, No Acute Distress, Other (Obese) HEENT: Pupils Equal, Pupils Reactive, EOMI, Mucous Membr. Moist/[place] Neck: Supple Lungs: Clear to Auscultation, Normal Respiratory Effort Cardiovascular: Regular Rhythm GI/Abdominal Exam: Normal Bowel Sounds, Soft, Non-Tender, No Organomegaly, No Distention, No Abnormal Bruit (Female) Exam: Deferred Back Exam: Normal Inspection, Decreased Range of Motion (on left lower leg) Extremities: Normal Inspection, Normal Range of Motion, Non-Tender, No Pedal Edema, Normal Capillary Refill, Other (Left lower leg splinted with Ortho-Glass. Circulation and sensation are intact.) Peripheral Pulses: 2+: Posterior Tibial (R), Dorsalis Pedis (R) Skin: Warm, Dry, Intact Neurological: No New Focal Deficit. No: Normal Gait Psy/Mental Status: Alert, Normal Affect, Normal Mood - Patient Data Lab Results Last 24 hrs: Laboratory Results - last 24 hr 07/25/21 07/25/21 Range/Units 05:55 05:55 WBC 5.2 (5.0-10.0) 10^3/uL RBC 3.60 L (4.2-5.4) 10^6/uL Hgb 11.0 L D (12.0-16.0) g/dL Hct 34.7 L (37.0-47.0) % MCV 96.4 (80-100) fL MCH 30.6 (27.0-34.0) pg MCHC 31.7 L (33.0-35.0) g/dL Plt Count 140 L (150-450) 10^3/uL Neut % (Auto) 63.5 (42.2-75.2) % Lymph % (Auto) 22.9 (20.5-50.1) % [place] % (Auto) 9.2 H (2-8) % Eos % (Auto) 4.0 H (1.0-3.0) % Baso % (Auto) 0.4 (0.0-1.0) % Sodium 140 (136-145) mmol/L Potassium 3.8 (3.5-5.1) mmol/L Chloride 105 (98-107) mmol/L Carbon Dioxide 27 (21-32) mmol/L Anion Gap 11.8 (7-13) mEq/L BUN 28 H (7-18) mg/dL Creatinine 1.22 H (0.55-1.02) mg/dL Est Cr Clr Drug Dosing 36.51 mL/min Estimated GFR (MDRD) 44 Glucose 114 H (70-99) mg/dL Calcium 8.7 (8.5-10.1) mg/dL Magnesium 1.8 (1.8-2.4) mg/dL Result Diagrams: 07/26/21 05:45 07/26/21 05:45 Sepsis Event Note - Evaluation Sepsis Screening Result: No Definite Risk - Focused Exam Vital Signs: Vital Signs Temp Pulse Resp BP Pulse Ox 07/25/21 04:00 36.4 C 104 H 18 140/88 96 07/24/21 22:49 36.5 C 84 18 118/71 95 07/24/21 20:00 36.5 C 90 20 105/91 H 93 L - Problem List Review Problem List Initiated/Reviewed/Updated: Yes - My Orders Last 24 Hours: My Active Orders 07/24/21 09:00 Aspirin [Halfprin] 81 mg PO DAILY Calcium Carbonate/Vitamin D3 [Calcium Carbonate/Vitamin D 1250 MG - 5 MCG] 1 tab PO BID Coconut Oil [Coconut Oil] 1 dose PO DAILY Cranberry Conc/C/Bacill Coag [Cranberry Tablet] 1 each PO DAILY Docusate Sodium [Colace] 100 mg PO BID Potassium Gluconate [Potassium] 99 mg PO DAILY Rosuvastatin [Crestor] 40 mg PO DAILY Sertraline [Zoloft] 50 mg PO DAILY Sodium Chloride 0.9% [Normal Saline] 1,000 ml IV ASDIRECTED 07/24/21 11:04 Peripheral IV Care [RC] Sodium Chloride 0.9% [Saline Flush] 10 ml FLUSH ASDIRECTED PRN Peripheral IV Insertion Adult [OM.PC] Routine 07/24/21 19:49 Melatonin 6 mg PO BEDTIME PRN 07/26/21 05:11 BASIC METABOLIC PANEL,BMP [CHEM] AM CBC WITH AUTO DIFF [HEME] AM MAGNESIUM [CHEM] AM 07/26/21 09:00 hydroCHLOROthiazide 25 mg PO DAILY lisinopriL [Prinivil] 10 mg PO DAILY 07/27/21 05:11 BASIC METABOLIC PANEL,BMP [CHEM] AM CBC WITH AUTO DIFF [HEME] AM MAGNESIUM [CHEM] AM 07/28/21 05:11 BASIC METABOLIC PANEL,BMP [CHEM] AM CBC WITH AUTO DIFF [HEME] AM MAGNESIUM [CHEM] AM - Assessment Assessment:: This is a 66-year-old elderly white female with past medical history of impaired vision and hearing, hypertension, hyperlipidemia, history of GA, coronary disease, e status post defibrillator placement, history of renal insufficiency, recurrent UTI, urinary frequency, MS, history of CVA, history of Tristan's palsy, vitamin D deficiency, osteoporosis, insomnia, anxiety, and obesity who was brought in by EMS on a stretcher after sustaining a traumatic fall while attempting to get something out of her closet and ended up injuring her left ankle. Assessment: Acute: Traumatic fall/ground-level fall without preceding symptoms Distal fibular fracture and posterior/lateral malleolar fracture of the distal fibula Complete tibiotalar dislocation Status post manual reduction with Ortho teleconsult Osteoporosis Vitamin D deficiency Acute kidney injury with creatinine 1.35 (now 1.22) with BUN of 35, carries a history of renal insufficiency (likely stage II or III) Mild hypokalemia with a potassium of 3.4 ; improved to 3.8 Hyperglycemia with glucose level of 145 Mild thrombocytopenia with platelet of 140 Class II obese Chronic: Impaired vision and hearing, hypertension, hyperlipidemia, history of GA, coronary disease, status post defibrillator placement, history of renal insufficiency, recurrent UTI, urinary frequency, MS, history of CVA, history of Tristan's palsy, vitamin D deficiency, osteoporosis, insomnia, anxiety, and obesity - Plan Plan:: Plan: Continue with current treatment Routine a.m. labs Fall precautions As needed pain medications Resume home meds once verified Electrolyte replacement protocol Heart healthy diet IV fluids for hydration due to acute kidney injury Continue to hold lisinopril, hydrochlorothiazide, and ibuprofen as blood pressure remained stable DVT/GI prophylaxis target worker/case management for discharge planning Has a scheduled appointment to see Dr. Duran next week (Monday) for orthopedic evaluation Estimated length of stay: Less than 96 hours with plans to discharge tomorrow morning at a local detention CODE STATUS is full
[2021-07-25] MEDS ORDERED: hydrALAZINE 20 MG/ML SDV IVPUSH PRN (08:32)
[2021-07-25] MEDS: Docusate Sodium 100 MG Cap PO SCH ×2 (08:41→21:11)
[2021-07-25] MEDS: Rosuvastatin 10 MG Tab PO SCH (08:41)
[2021-07-25] MEDS: Calcium Carbonate/Vitamin D3 1250 MG-5 MCG Tab PO SCH ×2 (08:41→21:11)
[2021-07-25] MEDS: Aspirin 81 MG Tab.EC PO SCH (08:41)
[2021-07-25] MEDS: Sertraline 50 MG Tab PO SCH (08:41)
[2021-07-26] MEDS: Sodium Chloride 0.9% 1,000 ML IV SCH (02:23)
[2021-07-26] MEDS: Heparin Sodium 5,000 Units/ML Vial SUBCUT SCH (05:48)
[2021-07-26 06:31] LABS: ANION GAP 11.1 mEq/L (7-13)
--- NOTE | 2021-07-26 07:26 | PCM.DCSUM1 ---
Discharge Summary - Hospital Course Brief History: This is a 66-year-old elderly white female with past medical history of impaired vision and hearing, hypertension, hyperlipidemia, history of PR, coronary disease, status post defibrillator placement, history of renal insufficiency, recurrent UTI, urinary frequency, MS, history of CVA, history of Tristan's palsy, vitamin D deficiency, osteoporosis, insomnia, anxiety, and obesity who was brought in by EMS on a stretcher after sustaining a traumatic fall while attempting to get something out of her closet and ended up injuring her left ankle. Diagnosis: Stroke: No Modified Maribel Scale: No Symptoms at All Modified Congers Scale Score: 0 - Discharge Data Discharge Date: 07/26/21 Discharge Disposition: DC/Tfer to Assisted Care [facility] Condition: Stable - Referral to Home Health Primary Care Physician: PCP None - Patient Summary/Data Operative Procedure(s) Performed: None Complications: None Consults: Consultations 07/23/21 14:57 Consult to Case Management/Geophysical Manager [CONS] Routine OT Evaluation and Treatment [CONS] Routine PT Evaluation and Treatment [CONS] Routine Labs Pending at D/C: None Recommended Follow-up Testing/Procedures: Ortho eval Planned Operative Procedure(s) after DC: possible surgical correction Hospital Course: Patient was admitted for medical management of acute left ankle fracture from a ground-level fall without preceding symptoms. ED provider tele-consulted with Ortho in [place] and he was able to successfully reduced her broken ankle. Unfortunately she came from an assisted living facility and she required assistance to get up and move around. Hence she was admitted here primarily for pain control. Her hospital course was uncomplicated and the rest of her chronic medical illness remained stable during her brief hospitalization. At this point, she is now ready for discharge to a local fci. She has been scheduled to see Ortho in [place] this coming Monday. Patient will be discharged with some pain medication. She is to continue with non- weightbearing of her left foot. She is to remain on fall precautions. She will resume all her home medications as previously prescribed. And most importantly, she is come back to the emergency department for worsening leg pain. - Patient Instructions Diet: Usual Diet as Tolerated Activity: Bedrest, May Use Bathroom, Non Weight Bearing (of the left foot) Driving: Do Not Drive Showering/Bathing: May Shower Wound/Incision Care: Keep Operative Site/Wound Site Clean and Dry Notify Provider of: Fever, Increased Pain, Swelling and Redness, Drainage, Nausea and/or Vomiting - Discharge Plan *PRESCRIPTION DRUG MONITORING PROGRAM REVIEWED*: Not Applicable *COPY OF PRESCRIPTION DRUG MONITORING REPORT IN PATIENT HORACIO: Not Applicable Prescriptions/Med Rec: traMADol HCl [Tramadol HCl] 100 mg PO Q8H PRN #12 tablet PRN Reason: Ankle Pain Home Medications: Home Meds Interferon Beta-1a/Albumin [Rebif Rebidose 44 Mcg/0.5 ml] 44 mcg IM .3XWEEKLY 07/01/14 [History] Aspirin [Halfprin] 81 mg PO DAILY #90 tab.ec 05/19/19 [Rx] Calcium Carbonate/Vitamin D3 [Calcium Carbonate/Vitamin D 1250 MG - 5 MCG] 1 tab PO BID #30 tablet 05/19/19 [Rx] Coconut Oil [Coconut Oil] 1 dose PO DAILY #30 05/19/19 [Rx] Cranberry Conc/C/Bacill Coag [Cranberry Tablet] 1 each PO DAILY #30 05/19/19 [Rx] Nitroglycerin [Nitrostat] 0.4 mg SL ASDIRECTED PRN #90 tab.sl 05/19/19 [Rx] Ondansetron [Zofran] 4 mg PO Q8H PRN #30 tab 05/19/19 [Rx] Sertraline [Zoloft] 50 mg PO DAILY 30 Days #30 tablet 05/19/19 [Rx] hydroCHLOROthiazide [Hydrochlorothiazide] 25 mg PO DAILY #30 tablet 05/19/19 [Rx] Scopolamine [Transderm-Scop] 1.5 mg TRDERM Q72H PRN #7 patch 05/21/19 [Rx] Acetaminophen [Pain Relief] 500 mg PO Q4H PRN 07/23/21 [History] Alendronate Sodium [Fosamax] 70 mg PO .Monday07/23/21 [History] Bisacodyl [Gentle Laxative] 10 mg RC DAILY PRN 07/23/21 [History] Docusate Sodium 100 mg PO BID 07/23/21 [History] Ibuprofen 200 mg PO Q6H PRN 07/23/21 [History] Melatonin 5 mg PO BEDTIME 07/23/21 [History] Potassium Gluconate [Potassium] 99 mg PO DAILY 07/23/21 [History] Rosuvastatin Calcium 40 mg PO DAILY 07/23/21 [History] lisinopriL [Lisinopril] 10 mg PO DAILY 07/23/21 [History] polyethylene glycoL 3350 [MiraLAX] 17 gm PO DAILY PRN 07/23/21 [History] traMADol HCl [Tramadol HCl] 100 mg PO Q8H PRN #12 tablet 07/26/21 [Rx] Oxygen Therapy Mode: Room Air Patient Handouts: Tramadol tablets, Ankle Fracture, [id number] Referrals: Angelica Ellison MD [Physician] - - Discharge Summary/Plan Comment DC Time >30 min.: No Total # of Minutes for Discharge Time: 25 mins to include placement to a fci Discharge Summary/Plan Comment: Discharge to fci with follow-up appointment with Ortho this coming Monday - General Info Date of Service: 07/26/21 Admission Dx/Problem (Free Text: Traumatic fall Subjective Update: No overnight or acute issues. Her pain is controlled with a pain scale of 3/10. She has no new complaints. She is afebrile with stable blood pressures. Her CBC is unremarkable. Her chemistry today shows potassium of 3.4 with elevated creatinine level of 1.9, much improved from yesterday of 1.35. Her glucose is also elevated at 145. Functional Status: Reports: Pain Controlled, Tolerating Diet, Urinating. Denies: Ambulating, New Symptoms - Review of Systems General: Denies: Fever, Weakness, Fatigue, Malaise, Chills HEENT: Reports: No Symptoms Pulmonary: Denies: Shortness of Breath, Cough Cardiovascular: Denies: Chest Pain, Dyspnea on Exertion, Lightheadedness Gastrointestinal: Denies: Abdominal Pain, Nausea, Vomiting Genitourinary: Reports: No Symptoms Musculoskeletal: Reports: Leg Pain. Denies: Neck Pain Skin: Denies: Bruising, Pruritis, Rash Neurological: Reports: Difficulty Walking, Gait Disturbance. Denies: Confusion, Numbness, Seizure, Tingling, Weakness Psychiatric: Denies: Depression, Anxiety, Agitation - Patient Data Vitals - Most Recent: Last Vital Signs Temp 36.3 C 07/26/21 04:30 Pulse 75 07/26/21 04:30 Resp 16 07/26/21 04:30 BP 120/79 07/26/21 04:30 Pulse Ox 97 07/26/21 04:30 Weight - Most Recent: 94.347 kg I&O - Last 24 hours: Intake & Output 07/25/21 07/26/21 07/26/21 22:59 06:59 14:59 Intake Total 100 Balance 100 Lab Results - Last 24 hrs: Laboratory Results - last 24 hr 07/26/21 07/26/21 Range/Units 05:45 05:45 WBC 4.5 L (5.0-10.0) 10^3/uL RBC 3.46 L (4.2-5.4) 10^6/uL Hgb 10.5 L (12.0-16.0) g/dL Hct 33.4 L (37.0-47.0) % MCV 96.5 (80-100) fL MCH 30.3 (27.0-34.0) pg MCHC 31.4 L (33.0-35.0) g/dL Plt Count 140 L (150-450) 10^3/uL Neut % (Auto) 61.6 (42.2-75.2) % Lymph % (Auto) 25.5 (20.5-50.1) % Perry % (Auto) 7.8 (2-8) % Eos % (Auto) 4.9 H (1.0-3.0) % Baso % (Auto) 0.2 (0.0-1.0) % Sodium 140 (136-145) mmol/L Potassium 4.1 (3.5-5.1) mmol/L Chloride 107 (98-107) mmol/L Carbon Dioxide 26 (21-32) mmol/L Anion Gap 11.1 (7-13) mEq/L BUN 22 H (7-18) mg/dL Creatinine 1.03 H (0.55-1.02) mg/dL Est Cr Clr Drug Dosing 43.24 mL/min Estimated GFR (MDRD) 53 Glucose 110 H (70-99) mg/dL Calcium 8.6 (8.5-10.1) mg/dL Magnesium 2.0 (1.8-2.4) mg/dL Med Orders - Current: Current Medications Acetaminophen (Acetaminophen 325 Mg Tab) 650 mg PO Q4H PRN PRN Reason: Pain (Mild 1-3)/fever Acetaminophen (Acetaminophen 500 Mg Tab) 500 mg PO Q4H PRN PRN Reason: Pain (mild 1-3) Hydrocodone Bitart/Acetaminophen (Acetaminophen/Hydrocodone 325-10 Mg Tab) 1 tab PO Q4H PRN PRN Reason: Pain (moderate 4-6) Last Admin: 07/25/21 20:08 Dose: 1 tab Documented by: Albuterol/Ipratropium (Albuterol/Ipratropium 3.0-0.5 Mg/3 Ml Neb Soln) 3 ml NEB Q4H PRN PRN Reason: shortness of breath/wheezing Aspirin (Aspirin 81 Mg Tab.Ec) 81 mg PO DAILY [facility] Last Admin: 07/25/21 08:41 Dose: 81 mg Documented by: Bisacodyl (Bisacodyl 10 Mg Supp) 10 mg RECTAL DAILY PRN PRN Reason: Constipation Calcium Carbonate (Calcium Carbonate/Vitamin D3 1250 Mg-5 Mcg Tab) 1 tab PO BID [facility] Last Admin: 07/25/21 21:11 Dose: 1 tab Documented by: Docusate Sodium (Docusate Sodium 100 Mg Cap) 100 mg PO BID [facility] Last Admin: 07/25/21 21:11 Dose: 100 mg Documented by: Heparin Sodium (Porcine) (Heparin Sodium 5,000 Units/Ml Vial) 5,000 units SUBCUT Q8HR [facility] Last Admin: 07/26/21 05:48 Dose: 5,000 units Documented by: Hydralazine HCl (Hydralazine 20 Mg/Ml Sdv) 20 mg IVPUSH Q6H PRN PRN Reason: Hypertension Hydrochlorothiazide (Hydrochlorothiazide 25 Mg Tab) 25 mg PO DAILY [facility] Hydromorphone HCl (Hydromorphone 0.5 Mg/0.5 Ml Syringe) 0.5 mg IVPUSH Q2H PRN PRN Reason: Pain (severe 7-10) Sodium Chloride (Normal Saline) 1,000 mls @ 50 mls/hr IV ASDIRECTED [facility] Last Admin: 07/26/21 02:23 Dose: 50 mls/hr Documented by: Lisinopril (Lisinopril 10 Mg Tab) 10 mg PO DAILY [facility] Melatonin (Melatonin 3 Mg Tab) 6 mg PO BEDTIME PRN PRN Reason: Sleep Last Admin: 07/24/21 20:23 Dose: 6 mg Documented by: Nitroglycerin (Nitroglycerin 0.4 Mg Tab.Sl) 0.4 mg SL ASDIRECTED PRN PRN Reason: Chest Pain Non-Formulary Medication (Alendronate Sodium [Fosamax]) 70 mg PO .EVERY THRUS [facility] Non-Formulary Medication (Coconut Oil [Coconut Oil]) 1 dose PO DAILY [facility] Non-Formulary Medication (Cranberry Conc/C/Bacill Coag [Cranberry Tablet]) 1 each PO DAILY [facility] Melatonin 5 Mg 5 each PO BEDTIME [facility] Non-Formulary Medication (Potassium Gluconate [Potassium]) 99 mg PO DAILY [facility] Non-Formulary Medication (Interferon Beta-1a/Albumin [Rebif Rebidose 44 Mcg/0.5 Ml]) 44 mcg IM .3XWEEKLY [facility] Ondansetron HCl (Ondansetron 4 Mg/2 Ml Sdv) 4 mg IVPUSH Q6H PRN PRN Reason: Nausea/Vomiting Ondansetron HCl (Ondansetron 4 Mg Tab.Dis) 4 mg PO Q8H PRN PRN Reason: Nausea/Vomiting Polyethylene Glycol (Polyethylene Glycol 3350 Powder 17 Gm Packet) 17 gm PO DAILY PRN PRN Reason: Constipation, use first Promethazine HCl (Promethazine 25 Mg/Ml Sdv) 12.5 mg IM Q6H PRN PRN Reason: Nausea/Vomiting, use 2nd Rosuvastatin Calcium (Rosuvastatin 10 Mg Tab) 40 mg PO DAILY [facility] Last Admin: 07/25/21 08:41 Dose: 40 mg Documented by: Scopolamine (Scopolamine 1.5 Mg Transdermal Patch) 1.5 mg TRDERM Q72H PRN PRN Reason: Nausea Sertraline HCl (Sertraline 50 Mg Tab) 50 mg PO DAILY [facility] Last Admin: 07/25/21 08:41 Dose: 50 mg Documented by: Sodium Chloride (Sodium Chloride 0.9% 10 Ml Syringe) 10 ml FLUSH ASDIRECTED PRN PRN Reason: Keep Vein Open Discontinued Medications Hydrochlorothiazide (Hydrochlorothiazide 25 Mg Tab) 25 mg PO DAILY [facility] Last Admin: 07/24/21 17:20 Dose: Not Given Documented by: Sodium Chloride (Normal Saline) 1,000 mls @ 125 mls/hr IV CONTINUOUS ONE Stop: 07/23/21 18:42 Last Admin: 07/23/21 11:33 Dose: 125 mls/hr Documented by: Lisinopril (Lisinopril 10 Mg Tab) 10 mg PO DAILY [facility] Last Admin: 07/24/21 17:20 Dose: Not Given Documented by: Non-Formulary Medication (Melatonin [Melatonin]) 5 mg PO BEDTIME [facility] Non-Formulary Medication (Rosuvastatin Calcium [Rosuvastatin Calcium]) 40 mg PO DAILY [facility] Last Admin: 07/24/21 17:21 Dose: Not Given Documented by: Potassium Chloride (Potassium Chloride 10 Meq Tab.Er) 40 meq PO ONETIME ONE Stop: 07/24/21 09:10 Last Admin: 07/24/21 09:28 Dose: 40 meq Documented by: - Exam Quality Assessment: Reports: Supplemental Oxygen, DVT Prophylaxis. Denies: Urine Catheter, Skin Breakdown General: Reports: Alert, Oriented, Cooperative, No Acute Distress, Other (Obese) HEENT: Reports: Pupils Equal, Pupils Reactive, EOMI, Mucous Membr. Moist/[place] Neck: Reports: Supple Lungs: Reports: Clear to Auscultation, Normal Respiratory Effort Cardiovascular: Reports: Regular Rate, Regular Rhythm GI/Abdominal Exam: Normal Bowel Sounds, Soft, Non-Tender, No Distention, No Abnormal Bruit (Female) Exam: Deferred Rectal (Female) Exam: Deferred Back Exam: Reports: Normal Inspection, Decreased Range of Motion Extremities: Non-Tender, No Pedal Edema, Limited Range of Motion (of left lower leg), Other (left lower leg splinted with orthoglass; intact neurovascular ) Skin: Reports: Warm, Dry, Intact Neurological: Reports: No New Focal Deficit, Sensation Intact. Denies: Normal Gait Psy/Mental Status: Reports: Alert, Normal Affect, Normal Mood
[2021-07-26] MEDS: Calcium Carbonate/Vitamin D3 1250 MG-5 MCG Tab PO SCH (08:07)
[2021-07-26] MEDS: Aspirin 81 MG Tab.EC PO SCH (08:07)
[2021-07-26] MEDS: Sertraline 50 MG Tab PO SCH (08:07)
[2021-07-26] MEDS: Rosuvastatin 10 MG Tab PO SCH (08:07)
[2021-07-26] MEDS: Docusate Sodium 100 MG Cap PO SCH (08:08)
[2021-07-26] MEDS ORDERED: Hydrochlorothiazide 25 MG Tab PO SCH (09:00)
[2021-07-26] MEDS ORDERED: Lisinopril 10 MG Tab PO SCH (09:00)
[2021-07-26 11:48] VITALS: BP 120/83; PULSE 69
== END 2021-07-26 13:15 ==
LOC: DL.ED 09:32 → DL.MS 14:05
PROVIDERS: ADMIT Internal Medicine; ATTEND Internal Medicine
DX: S82.62XA Displaced fracture of lateral malleolus of left fibula, initial encounter for closed fracture (principal); M81.0 Age-related osteoporosis without current pathological fracture; E55.9 Vitamin D deficiency, unspecified; E66.9 Obesity, unspecified; I10 Essential (primary) hypertension; E78.5 Hyperlipidemia, unspecified; I25.2 Old myocardial infarction; Z86.73 Personal history of transient ischemic attack (TIA), and cerebral infarction without residual deficits; Z20.822 Contact with and (suspected) exposure to COVID-19
CPT/HCPCS: 01462; 27818; 36415; 73600; 80048; 82306; 82565; 83735; 85025; 85049; 85730; 99285; A9270; J1644; J2704; J7030; U0002